=== PATIENT | female | born 1960 | race Caucasian/White ===

== ENCOUNTER 2017-02-21 13:09 | Observation (INO) | payer BC ==
[2017-02-21] MEDS ORDERED: ASPIRIN 81 MG PO STA (14:11)
[2017-02-21] MEDS ORDERED: NITROGLYCERIN OINT 1 INCH/GM PACKET TOPICAL STA (14:11)
--- NOTE | 2017-02-21 14:14 | ED ---
General Adult HPI - General Chief complaint: Chest Pain Stated complaint: chest & arm pain Time Seen by Provider: 02/21/17 13:50 Source: patient, family, RN notes reviewed Mode of arrival: wheelchair Limitations: no limitations - History of Present Illness Initial comments: Patient is a pleasant 36-year-old female presenting to the emergency department chest discomfort. Onset of symptoms was last night. Symptoms have been intermittent and usually occur with exertion. Discomfort is resolved at this point. Chest discomfort feels like a dull ache. There is radiation to the left arm which feels more tight. No chest discomfort at this time however arm is still a little bit tight. No associated dyspnea, nausea, or diaphoresis. No history of similar symptoms previously. No leg pain or leg swelling. - Related Data Home Medications Medication Instructions Recorded Confirmed traMADol HCL/ACETAMINOPHEN 1 tab PO TID PRN 02/21/17 02/21/17 [Ultracet 37.5-325] Allergies Allergy/AdvReac Type Severity Reaction Status Date / Time No Known Allergies Allergy Verified 02/21/17 13:24 Review of Systems ROS Statement: Those systems with pertinent positive or pertinent negative responses have been documented in the HPI. ROS Other: All systems not noted in ROS Statement are negative. Constitutional: Denies: fever Eyes: Denies: eye pain ENT: Denies: ear pain Respiratory: Denies: cough, dyspnea Cardiovascular: Reports: chest pain Endocrine: Denies: fatigue Gastrointestinal: Denies: abdominal pain Genitourinary: Denies: dysuria Musculoskeletal: Denies: back pain Skin: Denies: rash Neurological: Denies: weakness Past Medical History Additional Past Medical History / Comment(s): back pain History of Any Multi-Drug Resistant Organisms: None Reported Past Surgical History: Section, Uterine Ablation Additional Past Surgical History / Comment(s): fatty tumor removal Past Psychological History: No Psychological Hx Reported Smoking Status: Former smoker Past Alcohol Use History: Rare Past Drug Use History: None Reported General Exam Limitations: no limitations General appearance: alert, in no apparent distress Head exam: Present: atraumatic Eye exam: Present: normal appearance, PERRL ENT exam: Present: normal oropharynx Neck exam: Present: normal inspection Respiratory exam: Present: normal lung sounds bilaterally. Absent: chest wall tenderness Cardiovascular Exam: Present: regular rate, normal rhythm Expanded Peripheral pulses: 2+: Radial (R), Radial (L), Dorsalis Pedis (R), Dorsalis Pedis (L) GI/Abdominal exam: Present: soft. Absent: tenderness Extremities exam: Present: normal inspection. Absent: pedal edema, calf tenderness Neurological exam: Present: alert Psychiatric exam: Present: normal affect, normal mood Skin exam: Present: normal color Course Vital Signs 02/21/17 02/21/17 02/21/17 13:11 13:47 14:18 Temperature 97.9 F Pulse Rate 65 58 L 67 Respiratory 17 18 18 Rate Blood Pressure 131/75 114/55 121/75 O2 Sat by Pulse 100 99 97 Oximetry EKG Findings - EKG Comments: EKG Findings:: Sinus bradycardia 57. [place] 162. QRS 90. QT 426. QTc 414. Normal axis. Normal QRS. No acute ST change. Medical Decision Making - Medical Decision Making Patient reevaluated and resting comfortably in bed. Patient family updated on results and plan. Case was discussed in detail with Dr. Jimenez, who will admit for Dr. Silverio. - Lab Data Result diagrams: 02/21/17 13:40 02/21/17 13:40 Lab Results 02/21/17 02/21/17 02/21/17 Range/Units 13:40 13:40 13:40 WBC 5.6 (3.8-10.6) k/uL RBC 4.52 (3.80-5.40) m/uL Hgb 13.7 (11.4-16.0) gm/dL Hct 41.9 (34.0-46.0) % MCV 92.8 (80.0-100.0) fL MCH 30.2 (25.0-35.0) pg MCHC 32.6 (31.0-37.0) g/dL RDW 12.7 (11.5-15.5) % Plt Count 308 (150-450) k/uL Neutrophils % 71 % Lymphocytes % 22 % Monocytes % 4 % Eosinophils % 1 % Basophils % 1 % Neutrophils # 4.0 (1.3-7.7) k/uL Lymphocytes # 1.2 (1.0-4.8) k/uL Monocytes # 0.2 (0-1.0) k/uL Eosinophils # 0.1 (0-0.7) k/uL Basophils # 0.0 (0-0.2) k/uL PT (9.0-12.0) sec INR (<1.2) APTT (22.0-30.0) sec Sodium 144 (137-145) mmol/L Potassium 4.2 (3.5-5.1) mmol/L Chloride 107 (98-107) mmol/L Carbon Dioxide 29 (22-30) mmol/L Anion Gap 8 mmol/L BUN 14 (7-17) mg/dL Creatinine 0.70 (0.52-1.04) mg/dL Est GFR (MDRD) Af Amer >60 (>60 ml/min/1.73 sqM) Est GFR (MDRD) Non-Af >60 (>60 ml/min/1.73 sqM) Glucose 116 H (74-99) mg/dL Calcium 10.0 (8.4-10.2) mg/dL Magnesium 2.0 (1.6-2.3) mg/dL Total Bilirubin 0.4 (0.2-1.3) mg/dL AST 30 (14-36) U/L ALT 30 (9-52) U/L Alkaline Phosphatase 53 (38-126) U/L Total Creatine Kinase 113 (30-135) U/L CK-MB (CK-2) 1.6 (0.0-2.4) ng/mL CK-MB (CK-2) Rel Index 1.4 Troponin I <0.012 (0.000-0.034) ng/mL Total Protein 7.2 (6.3-8.2) g/dL Albumin 4.4 (3.5-5.0) g/dL 02/21/17 Range/Units 13:40 WBC (3.8-10.6) k/uL RBC (3.80-5.40) m/uL Hgb (11.4-16.0) gm/dL Hct (34.0-46.0) % MCV (80.0-100.0) fL MCH (25.0-35.0) pg MCHC (31.0-37.0) g/dL RDW (11.5-15.5) % Plt Count (150-450) k/uL Neutrophils % % Lymphocytes % % Monocytes % % Eosinophils % % Basophils % % Neutrophils # (1.3-7.7) k/uL Lymphocytes # (1.0-4.8) k/uL Monocytes # (0-1.0) k/uL Eosinophils # (0-0.7) k/uL Basophils # (0-0.2) k/uL PT 10.4 (9.0-12.0) sec INR 1.1 (<1.2) APTT 28.5 (22.0-30.0) sec Sodium (137-145) mmol/L Potassium (3.5-5.1) mmol/L Chloride (98-107) mmol/L Carbon Dioxide (22-30) mmol/L Anion Gap mmol/L BUN (7-17) mg/dL Creatinine (0.52-1.04) mg/dL Est GFR (MDRD) Af Amer (>60 ml/min/1.73 sqM) Est GFR (MDRD) Non-Af (>60 ml/min/1.73 sqM) Glucose (74-99) mg/dL Calcium (8.4-10.2) mg/dL Magnesium (1.6-2.3) mg/dL Total Bilirubin (0.2-1.3) mg/dL AST (14-36) U/L ALT (9-52) U/L Alkaline Phosphatase (38-126) U/L Total Creatine Kinase (30-135) U/L CK-MB (CK-2) (0.0-2.4) ng/mL CK-MB (CK-2) Rel Index Troponin I (0.000-0.034) ng/mL Total Protein (6.3-8.2) g/dL Albumin (3.5-5.0) g/dL - Radiology Data Radiology results: image reviewed (Chest x-ray shows no acute process) Disposition Clinical Impression: Chest pain Disposition: ADMITTED IP TO THIS [facility] Referrals: Grisel Silverio DO [Primary Care Provider] - 1-2 days Decision Time: 15:28
[2017-02-21 14:27] LABS: Basophils % (A) 1 %; Eosinophils # (A) 0.1 k/uL (0-0.7); Eosinophils % (A) 1 %; HCT 41.9 % (34.0-46.0); HGB 13.7 gm/dL (11.4-16.0); Lymphocytes # (A) 1.2 k/uL (1.0-4.8); Lymphocytes % (A) 22 %; MCH 30.2 pg (25.0-35.0); MCHC 32.6 g/dL (31.0-37.0); MCV 92.8 fL (80.0-100.0); Mean Platelet Volume 6.6; Monocytes # (A) 0.2 k/uL (0-1.0); Monocytes % (A) 4 %; Neutrophils % (A) 71 %; Platelet Count 308 k/uL (150-450); RBC 4.52 m/uL (3.80-5.40); RDW 12.7 % (11.5-15.5); WBC 5.6 k/uL (3.8-10.6)
[2017-02-21 14:34] LABS: ALT 30 U/L (9-52); AST 30 U/L (14-36); Albumin 4.4 g/dL (3.5-5.0); Alkaline Phosphatase 53 U/L (38-126); Anion Gap 8 mmol/L; Blood Urea Nitrogen 14 mg/dL (7-17); Carbon Dioxide 29 mmol/L (22-30); Chloride 107 mmol/L (98-107); Glucose 116 mg/dL (74-99); INR 1.1 (<1.2); Partial Thromboplastin Time 28.5 sec (22.0-30.0); Potassium 4.2 mmol/L (3.5-5.1); Prothrombin Time 10.4 sec (9.0-12.0); Sodium 144 mmol/L (137-145); Total Bilirubin 0.4 mg/dL (0.2-1.3); Total Protein 7.2 g/dL (6.3-8.2)
--- NOTE | 2017-02-21 14:45 | XR ---
EXAMINATION TYPE: XR chest 2V DATE OF EXAM: 02/21/2017 COMPARISON: None HISTORY: 56-year-old female with chest pain TECHNIQUE: PA and lateral views FINDINGS: The cardiomediastinal silhouette, aorta, and pulmonary vasculature are within normal limits. Lungs an d pleural spaces are clear. IMPRESSION: No acute cardiopulmonary process.
[2017-02-21 14:49] LABS: Creatine Kinase 113 U/L (30-135)
[2017-02-21 15:02] LABS: Creatine Kinase MB 1.6 ng/mL (0.0-2.4); Troponin I <0.012 ng/mL (0.000-0.034)
[2017-02-21] MEDS ORDERED: NITROGLYCERIN SL TABS 0.4 MG TAB SUBLINGUAL PRN (15:29)
[2017-02-21 17:33] VITALS: BMI 24.4
[2017-02-21] MEDS ORDERED: traMADol-ACETAMINOP 37.5-325MG 1 EACH TAB PO PRN (18:02)
[2017-02-21 19:58] LABS: Creatine Kinase 97 U/L (30-135)
[2017-02-21 20:08] LABS: Creatine Kinase MB 1.1 ng/mL (0.0-2.4); Troponin I <0.012 ng/mL (0.000-0.034)
[2017-02-21] MEDS ORDERED: ACETAMINOPHEN TAB 325 MG TAB PO PRN (20:21)
[2017-02-21] MEDS ORDERED: HEPARIN SODIUM,PORCINE 5,000 UNIT/ML 1 ML VIAL IV PRN (20:22)
[2017-02-21] MEDS ORDERED: HEPARIN SODIUM,PORCINE 5,000 UNIT/ML 1 ML VIAL IV ONE (20:22)
[2017-02-21] MEDS ORDERED: HEPARIN SOD,PORK IN 0.45% NACL 25,000 UNIT in 0.45% NACL 1 500ML.BAG IV SCH (20:30)
[2017-02-21 20:57] LABS: INR 1.1 (<1.2); Partial Thromboplastin Time 23.9 sec (22.0-30.0); Prothrombin Time 10.7 sec (9.0-12.0)
[2017-02-21] MEDS ORDERED: diphenhydrAMINE 25 MG CAP PO SCH (21:00)
[2017-02-21] MEDS: NITROGLYCERIN OINT 1 INCH/GM PACKET TOPICAL SCH (21:12)
--- NOTE | 2017-02-21 22:59 | HP ---
HISTORY AND PHYSICAL DATE OF SERVICE: 02/21/2017 CHIEF COMPLAINT: Chest pain. HISTORY OF PRESENT ILLNESS: This 56-year-old woman with a past medical history of back pain, uterine ablation, being followed by Dr. Camacho in the outpatient setting, was apparently having chest pains today. The patient felt pain in the left side of the chest and epigastrium and subsequently it also radiated to the left arm, almost like an ache; and because of increasing symptoms and concerns, the patient came to [facility] and was admitted for further evaluation and treatment. The patient never had a previous cardiac workup before. On admission the EKG showed no acute abnormality except heart rate of 57 showing mild sinus bradycardia. There is no history of any fever, rigors or chills. No history of headache, loss of consciousness, seizures. PAST MEDICAL HISTORY: 1. History of DJD. 2. Back pain. 3. History of section. 4. Uterine ablation. MEDICATIONS PRIOR TO ADMISSION: Medications prior to admission include Ultram 1 tablet t.i.d. p.r.n. ALLERGIES: NONE. FAMILY HISTORY: No history of heart disease or strokes in the family. SOCIAL HISTORY: Previous history of smoking. No current smoking or alcohol intake. Patient works at [employer]. REVIEW OF SYSTEMS: ENT: No diminished hearing. No diminished vision. CARDIOVASCULAR SYSTEM: As mentioned earlier. RESPIRATORY SYSTEM: No cough, hemoptysis. GI: No nausea, vomiting. : No dysuria or retention. NERVOUS SYSTEM: No numbness, weakness. ALLERGY/IMMUNOLOGY: No asthma, hayfever. MUSCULOSKELETAL: As mentioned earlier. HEMATOLOGY/ONCOLOGY: No history of anemia. ENDOCRINE: No history of diabetes, hypothyroidism. CONSTITUTIONAL: As mentioned earlier. DERMATOLOGY: Negative. RHEUMATOLOGY: Negative. PSYCHIATRY: As mentioned earlier. PHYSICAL EXAMINATION: Patient is alert and oriented x3. The pulse is 51, blood pressure 119/56, respiration 16, temperature 97.1, pulse ox 100% on room air. HEENT: Conjunctivae normal. Oral mucosa moist. NECK: No jugular venous distention. No carotid bruit. No lymph node enlargement. CARDIOVASCULAR SYSTEM: S1, S2 muffled. No S3. No S4. RESPIRATORY SYSTEM: Breath sounds diminished at the bases. No rhonchi. No crackles. ABDOMEN: Soft, non-tender. No mass palpable.. LEGS: No edema. No swelling. NERVOUS SYSTEM: Higher functions as mentioned earlier. Moves all 4 limbs. No focal motor or sensory deficit. LYMPHATICS: No lymph node palpable in neck, axillae or groin. SKIN: No ulcer, rash, bleeding. LABS: CBC within normal limits. Glucose 116. ASSESSMENT: 1. Chest pain, possible unstable angina. 2. Increased random blood sugar. 3. Remote history of nicotine dependence. 4. History of degenerative joint disease, back pain. RECOMMENDATIONS AND DISCUSSION: In this 56-year-old woman who presented with multiple complex medical issues, we will monitor the patient closely, continue the current medications, continue with symptomatic management. Will initiate unstable angina protocol, heparin and antiplatelet agents. Cardiology consultation. I would also recommend possible stress test in the morning the cardiac markers are negative. Repeat labs will also be ordered. Prognosis guarded because of multiple complex medical issues. Discussed with the patient, who understands. Further recommendations to follow. A copy of this dictation is being forwarded to Dr. Camacho, who is the primary physician. MMODL / IJN: [id number] / [id number]
[2017-02-22 01:31] LABS: Creatine Kinase 86 U/L (30-135)
[2017-02-22 01:45] LABS: Creatine Kinase MB 1.2 ng/mL (0.0-2.4); Troponin I <0.012 ng/mL (0.000-0.034)
[2017-02-22 03:27] LABS: Basophils % (A) 0 %; Eosinophils # (A) 0.1 k/uL (0-0.7); Eosinophils % (A) 2 %; HCT 42.5 % (34.0-46.0); HGB 13.6 gm/dL (11.4-16.0); Lymphocytes # (A) 1.6 k/uL (1.0-4.8); Lymphocytes % (A) 24 %; MCV 93.8 fL (80.0-100.0); Mean Platelet Volume 7.6; Monocytes # (A) 0.4 k/uL (0-1.0); Monocytes % (A) 5 %; Neutrophils # (A) 4.5 k/uL (1.3-7.7); Neutrophils % (A) 66 %; Platelet Count 273 k/uL (150-450); RBC 4.53 m/uL (3.80-5.40); RDW 13.9 % (11.5-15.5); WBC 6.8 k/uL (3.8-10.6)
[2017-02-22] MEDS: NITROGLYCERIN OINT 1 INCH/GM PACKET TOPICAL SCH ×3 (03:33→12:27)
[2017-02-22 04:22] LABS: Anion Gap 10 mmol/L; Blood Urea Nitrogen 14 mg/dL (7-17); Calcium 10.4 mg/dL (8.4-10.2); Carbon Dioxide 25 mmol/L (22-30); Chloride 108 mmol/L (98-107); Cholesterol 237 mg/dL (<200); Glucose 104 mg/dL (74-99); HDL Cholesterol 76 mg/dL (40-60); LDL Cholesterol,Calculated 147 mg/dL (0-99); Sodium 143 mmol/L (137-145); Triglycerides 70 mg/dL (<150)
[2017-02-22 08:42] VITALS: RESP 16
--- NOTE | 2017-02-22 08:57 | P.CRDCN ---
History of Present Illness Consult date: 02/22/17 Chief complaint: Chest discomfort History of present illness: This is a pleasant 56-year-old female patient with no significant past medical history presented to the emergency room complaining of chest discomfort. She was in her usual state of health and she went home after work and suddenly she started experiencing discomfort in the left lower chest as a sharp kind of discomfort with some radiation to the left arm. No associated symptoms of shortness of breath. No dizziness or lightheadedness. No nausea or vomiting. And no syncope. 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 As a matter of fact she does not take any medications at home. The EKG showed sinus rhythm without any significant ST or T-wave abnormalities concerning for ischemia. The cardiac enzymes were checked and came in to be unremarkable. The patient does have her father who has congestive heart failure but not coronary artery disease. Past Medical History Additional Past Medical History / Comment(s): back pain History of Any Multi-Drug Resistant Organisms: None Reported Past Surgical History: Section, Uterine Ablation Additional Past Surgical History / Comment(s): fatty tumor removal Past Psychological History: No Psychological Hx Reported Smoking Status: Former smoker Past Alcohol Use History: Rare Past Drug Use History: None Reported Medications and Allergies Home Medications Medication Instructions Recorded Confirmed Type traMADol HCL/ACETAMINOPHEN 1 tab PO TID PRN 02/21/17 02/21/17 History [Ultracet 37.5-325] Allergies Allergy/AdvReac Type Severity Reaction Status Date / Time No Known Allergies Allergy Verified 02/21/17 13:24 Physical Exam Vitals: Vital Signs Temp Pulse Pulse Resp BP BP Pulse Ox 02/22/17 08:00 98.0 F 63 16 103/56 02/22/17 04:00 97.3 F L 61 18 107/55 97 02/22/17 00:00 97.7 F 66 18 115/53 96 02/21/17 20:30 97.0 F L 62 18 119/64 96 02/21/17 19:41 97 02/21/17 17:20 97.1 F L 51 L 16 119/57 100 02/21/17 16:00 98.1 F 59 L 19 120/57 98 02/21/17 14:18 67 18 121/75 97 02/21/17 13:47 58 L 18 114/55 99 02/21/17 13:11 97.9 F 65 17 131/75 100 Intake and Output 02/21/17 02/22/17 02/22/17 22:59 06:59 14:59 Intake Total 240 0 Balance 240 0 Intake: Oral 240 0 Other: Voiding Method Toilet Toilet # Voids 0 1 # Bowel Movements 0 Weight 70.76 kg 69.8 kg - Constitutional General appearance: no acute distress - Respiratory Respiratory: bilateral: CTA - Cardiovascular Rhythm: regular Heart sounds: normal: S1, S2 Results 02/22/17 03:15 02/22/17 03:15 Cardiac Enzymes 02/21/17 02/21/17 02/21/17 Range/Units 13:40 13:40 19:26 AST 30 (14-36) U/L CK-MB (CK-2) 1.6 1.1 (0.0-2.4) ng/mL Troponin I <0.012 <0.012 (0.000-0.034) ng/mL 02/22/17 Range/Units 00:58 AST (14-36) U/L CK-MB (CK-2) 1.2 (0.0-2.4) ng/mL Troponin I <0.012 (0.000-0.034) ng/mL Coagulation 02/21/17 02/21/17 02/22/17 Range/Units 13:40 20:33 03:15 PT 10.4 10.7 (9.0-12.0) sec APTT 28.5 23.9 65.0 H (22.0-30.0) sec Lipids 02/22/17 Range/Units 03:15 Triglycerides 70 (<150) mg/dL Cholesterol 237 H (<200) mg/dL HDL Cholesterol 76 H (40-60) mg/dL CBC 02/21/17 02/22/17 Range/Units 13:40 03:15 WBC 5.6 6.8 (3.8-10.6) k/uL RBC 4.52 4.53 (3.80-5.40) m/uL Hgb 13.7 13.6 (11.4-16.0) gm/dL Hct 41.9 42.5 (34.0-46.0) % Plt Count 308 273 (150-450) k/uL Comprehensive Metabolic Panel 02/21/17 02/22/17 Range/Units 13:40 03:15 Sodium 144 143 (137-145) mmol/L Potassium 4.2 4.0 (3.5-5.1) mmol/L Chloride 107 108 H (98-107) mmol/L Carbon Dioxide 29 25 (22-30) mmol/L BUN 14 14 (7-17) mg/dL Creatinine 0.70 0.71 (0.52-1.04) mg/dL Glucose 116 H 104 H (74-99) mg/dL Calcium 10.0 10.4 H (8.4-10.2) mg/dL AST 30 (14-36) U/L ALT 30 (9-52) U/L Alkaline Phosphatase 53 (38-126) U/L Total Protein 7.2 (6.3-8.2) g/dL Albumin 4.4 (3.5-5.0) g/dL Current Medications Generic Name Dose Route Start Last Admin Trade Name Dannyq PRN Reason Stop Dose Admin Acetaminophen 650 mg 02/21/17 20:21 02/21/17 20:46 Tylenol Tab PO 650 mg Q6HR PRN Administration Mild Pain Aspirin 325 mg 02/22/17 09:00 Aspirin PO DAILY [facility] Diphenhydramine HCl 25 mg 02/21/17 21:00 02/21/17 21:42 Benadryl PO 25 mg HS NAFISA Administration Heparin Sodium (Porcine) 0 unit 02/21/17 20:22 Heparin IV PER PROTOCOL PRN Low PTT Protocol Heparin Sodium/Sodium Chloride 500 mls @ 16.98 mls/hr 02/21/17 20:30 21:29 25,000 unit/ Sodium Chloride IV 12 units/kg/hr .Q24H NAFISA 16.98 mls/hr Protocol Administration 12 UNITS/KG/HR Nitroglycerin 1 inch 02/21/17 18:00 02/22/17 05:39 Nitro-Bid Oint TOPICAL Not Given Q6HR [facility] Nitroglycerin 0.4 mg 02/21/17 15:29 Nitrostat SUBLINGUAL Q5M PRN Chest Pain Tramadol/Acetaminophen 1 each 02/21/17 18:02 Ultracet PO Q6HR PRN pain Intake and Output 02/21/17 02/22/17 02/22/17 22:59 06:59 14:59 Intake Total 240 0 Balance 240 0 Intake: Oral 240 0 Other: Voiding Method Toilet Toilet # Voids 0 1 # Bowel Movements 0 Weight 70.76 kg 69.8 kg 02/22/17 03:15 02/22/17 03:15 Assessment and Plan Assessment: Assessment #1 atypical chest discomfort #2 prior history of smoking Plan #1 the patient was ruled out for acute coronary syndrome #2 I recommended obtaining a stress test to rule out any severe underlying CAD. Thank you for allowing us participate in her care
[2017-02-22] MEDS ORDERED: ASPIRIN 325 MG TAB PO SCH (09:00)
[2017-02-22 12:23] VITALS: BP 110/62; PULSE 70; TEMP 98.1
--- NOTE | 2017-02-22 12:45 | ECHOS ---
STRESS ECHOCARDIOGRAM INDICATIONS: Chest pain. MEDICATIONS: Tramadol. BASELINE HEART RATE: 86 BASELINE BLOOD PRESSURE: 143/90 MAXIMUM HEART RATE: 156 MAXIMUM BLOOD PRESSURE: 133/59 85% MPHR: 140 100% MPHR: 165 METS: 10.3 MAXIMUM STAGE REACHED: 3 TOTAL EXERCISE TIME: 9:00 CLINICAL INFORMATION: Baseline EKG revealed normal sinus rhythm without significant ST-T changes. Patient walked on standard Sal protocol for 9 minutes, achieved a maximal heart rate of 156 beats per minute which is well above 85% of predicted maximal. Resting heart rate is 86 beats per minute. Resting blood pressure was 143/90. She did not have a significant increase in blood pressure with exercise. The recordings of blood pressure were inadequate. By EKG criteria, this is a negative stress test with fair exercise capacity. However, the blood pressure response seemed somewhat inadequate and flat. Clinical correlation is suggested. Baseline echo images revealed normal wall motion and wall thickening of all segments. At peak exercise, there was good augmentation of the wall motion and wall thickening of all segments suggesting that there is no evidence of stress-induced ischemia on this study. IMPRESSION: 1. Fair exercise capacity with a negative stress test by EKG criteria with somewhat of a flat blood pressure response to exercise. This may be an aberrancy, may not necessarily represent any significant abnormality. 2. Normal stress echocardiogram. 3. Clinical correlation is suggested. MMODL / IJN: [id number] /
--- NOTE | 2017-02-22 14:55 | P.DS ---
Providers Date of admission: 02/21/17 15:29 Attending physician: Adeola Andrea MD Consults: 02/21/17 15:29 Consult Physician Urgent Consulting Provider: Juaquin Reyna Consult Reason/Comments: cp Do you want consulting provider notified?: Yes Primary care physician: Grisel Camacho [facility] Course: This 56-year-old woman with a past medical history of back pain was admitted chest pain. Myocardial infarction ruled out. Cardiology performed a stress test. Which was normal. Patient improved significantly. Patient be discharged in a stable condition with guarded prognosis. On exam vitals are stable. Cardio S1-S2 normal. Respiratory system clear to oscillation. Abdomen soft nontender. Nervous system no focal deficit. Final diagnosis 1. Chest pain possibly musculoskeletal with a negative stress test. 2. Increased Blood sugar. 3. Remote history and nicotine dependence. 4. History of DJD and back pain. Plan - Discharge Summary Discharge Rx Participant: No New Discharge Prescriptions: Continue traMADol HCL/ACETAMINOPHEN [Ultracet 37.5-325] 1 tab PO TID PRN PRN Reason: Pain Discharge Medication List traMADol HCL/ACETAMINOPHEN [Ultracet 37.5-325] 1 tab PO TID PRN 02/21/17 [ History] Follow up Appointment(s)/Referral(s): Grisel Camacho DO [Primary Care Provider] - 1-2 days Activity/Diet/Wound Care/Special Instructions: act limited till f/u f/u with cardio as advised diet cardiac Discharge Disposition: HOME SELF-CARE
== END 2017-02-22 15:14 | disposition home or self-care (01) ==
LOC: SUPCPDRO 13:09 → EC 13:09 → 6SEL 15:29
PROVIDERS: ADMIT Internal Medicine; ATTEND Internal Medicine
DX: R07.89 Other chest pain (principal); M79.602 Pain in left arm; M54.9 Dorsalgia, unspecified; R00.1 Bradycardia, unspecified; M19.90 Unspecified osteoarthritis, unspecified site; Z87.891 Personal history of nicotine dependence; Z82.49 Family history of ischemic heart disease and other diseases of the circulatory system
CPT/HCPCS: 96376; 96365; 96366 ×2; 99285; 36415; 94760; 93005; 93017; 93350; 80061; 80053; 80048; 82550 ×2; 82553 ×2; 83735; 84484 ×2; 85025 ×2; 85610; 85730 ×2; 71020; G0378 ×2; J1644 ×2

== ENCOUNTER → 2017-12-09 | Outpatient (CLI) | payer BC ==
--- NOTE | 2017-12-10 10:26 | MM ---
Reason for exam: screening (asymptomatic). Last mammogram was performed 2 years and 7 months ago. History: Patient is postmenopausal. Physical Findings: A clinical breast exam by your physician is recommended on an annual basis and results should be correlated with mammographic findings. MG 3D Screening Mammo W/Cad Bilateral CC and MLO view(s) were taken. Prior study comparison: April 25, 2015, bilateral MG 3d screening mammo w/cad. December 08, 2012, bilateral digital screening mammo w/CAD. There are scattered fibroglandular densities. No suspicious abnormality. ASSESSMENT: Negative, BI-RAD 1 RECOMMENDATION: Routine screening mammogram of both breasts in 1 year.
== END | disposition home or self-care (01) ==
LOC: RADMAMWWP 09:53
PROVIDERS: ATTEND Family Medicine
DX: Z12.31 Encounter for screening mammogram for malignant neoplasm of breast (principal)
CPT/HCPCS: 77063; 77067

== ENCOUNTER → 2018-10-14 | Outpatient (CLI) | payer BC ==
--- NOTE | 2018-10-14 15:36 | XR ---
Lumbar spine HISTORY: Chronic low back pain 3 views of the lumbar spine Bone mineralization is reduced. Lumbar vertebral bodies show preserved height and alignment. Loss of disc height is greatest at L4-5, there is associated spondylosis. Intervertebral loss of disc height is also present L3-4, L2-3. Sclerosis present in the posterior elements of the lower lumbar spine. IMPRESSION: Degenerative disc disease, osteopenia, facet arthropathy.
== END | disposition home or self-care (01) ==
LOC: RADXRYALE 11:13
PROVIDERS: ATTEND Nurse Practitioner Family
DX: M51.36 Other intervertebral disc degeneration, lumbar region (principal); M46.96 Unspecified inflammatory spondylopathy, lumbar region; M85.88 Other specified disorders of bone density and structure, other site
CPT/HCPCS: 72100

== ENCOUNTER 2019-11-18 07:18 | Day surgery (SDC) | payer BC ==
[~2019-11-18 07:18] MED LIST: LACTATED RINGERS 1,000 ML IV SCH; MIDAZOLAM 2 MG/2 ML VIAL IV PRN; ONDANSETRON 4 MG/2 ML VIAL IVP PRN; fentaNYL (PF) 50 MCG/ML 2 ML AMP IV PRN; fentaNYL (PF) 50 MCG/ML 2 ML AMP IVP PRN
[2019-11-18 08:01] VITALS: RESP 16; TEMP 98.1
[2019-11-18] MEDS ORDERED: PROPOFOL 10 MG/ML 20 ML VIAL IV ONE (08:10)
[2019-11-18] MEDS ORDERED: LIDOCAINE 1% INJ 10MG/ML (20 ML MDV) ONE (08:10)
--- NOTE | 2019-11-18 08:30 | P.PCN ---
Date of Procedure: 11/18/19 Procedure(s) Performed: BRIEF HISTORY: Patient is a 59-year-old pleasant female scheduled for an elective colonoscopy as a part of screening for colorectal neoplasia. PROCEDURE PERFORMED: Colonoscopy with snare . CA polypectomyEOPERATIVE DIAGNOSIS: Screening for colon cancer. IV sedation per Anesthesia. PROCEDURE: After informed consent was obtained, the patient, was brought into the endoscopy unit. IV sedation was administered by Anesthesia under continuous monitoring. Digital rectal examination was normal. Initially the Olympus CF-160 flexible video colonoscope was then inserted in the rectum, gradually advanced into the cecum without any difficulty. Careful examination was performed as the scope was gradually being withdrawn. Ileocecal valve and the appendiceal orifice were visualized and appeared normal. Prep was excellent. Mucosa of the cecum, ascending colon, transverse colon, descending colon, sigmoid colon,had diffuse Temple recommendations consistent with melanosis coli. In the proximal rectum there was a 5 mm polyp that was removed by snare polypectomy. Rest of the rect um appeared normal. Retoflexion was performed in the rectum and no lesions were seen. The patient tolerated the procedure well. IMPRESSION: 5 mm proximal rectal polyp status post polypectomy Severe melanosis coli. RECOMMENDATIONS: Findings of this examination were discussed with the patient as well as a family. she was advised to follow with the biopsy sites. If the biopsy shows an adenoma she can have a repeat colonoscopy in 5 years
[2019-11-18 08:48] VITALS: BP 111/61; PULSE 56
== END 2019-11-18 09:06 | disposition home or self-care (01) ==
LOC: ORWHC2ENDO 07:18 → MERGE 08:50 → EDBD 08:50 → ORWHC2ENDO 09:06
PROVIDERS: ATTEND Internal Medicine Gastroenterology
DX: Z12.11 Encounter for screening for malignant neoplasm of colon (principal); K62.1 Rectal polyp; K63.89 Other specified diseases of intestine
CPT/HCPCS: 45385; 88305; J2001; J2704

== ENCOUNTER → 2020-03-02 | Outpatient (CLI) | payer BC ==
--- NOTE | 2020-03-03 14:28 | MM ---
Reason for exam: screening (asymptomatic). Last mammogram was performed 2 years and 3 months ago. History: Patient is postmenopausal. Physical Findings: A clinical breast exam by your physician is recommended on an annual basis and results should be correlated with mammographic findings. MG 3D Screening Mammo W/Cad Bilateral CC and MLO view(s) were taken. Prior study comparison: December 09, 2017, bilateral MG 3d screening mammo w/cad. April 25, 2015, bilateral MG 3d screening mammo w/cad. There are scattered fibroglandular densities. No significant changes when compared with prior studies. ASSESSMENT: Negative, BI-RAD 1 RECOMMENDATION: Routine screening mammogram of both breasts in 1 year.
== END | disposition home or self-care (01) ==
LOC: RADMAMWWP 10:01
PROVIDERS: ATTEND Obstetrics & Gynecology
DX: Z12.31 Encounter for screening mammogram for malignant neoplasm of breast (principal)
CPT/HCPCS: 77063; 77067

== ENCOUNTER → 2021-10-10 | Outpatient (CLI) | payer BC ==
--- NOTE | 2021-10-10 13:25 | BD ---
EXAMINATION TYPE: Axial Bone Density DATE OF EXAM: 10/10/2021 COMPARISON: NONE CLINICAL HISTORY: 61 years year old Female. ICD-10 CODE: Y75489 ENCOUNTER FOR SCRENING OSTEOPOROSIS Height: 5' 6 1/2 Weight: 160 FRAX RISK QUESTIONS: Secondary Osteoporosis: RISK FACTORS HISTORY OF: Postmenopausal woman: y MEDICATIONS: Additional Medications: backpain, Additional History: EXAM MEASUREMENTS: Bone mineral densitometry was performed using the freee System. Bone mineral density as measured about the Lumbar spine is: ----- L1-L4(G/cm2): 1.088 T Score Values are as follows: ----- L1: -1.0 ----- L2: -1.2 ----- L3: -0.5 ----- L4: -0.5 ----- L1-L4: -0.8 Bone mineral density about the R hip (g/cm2): 1.007 Bone mineral density about the L hip (g/cm2): 0.988 T Score values are as follows: -----R Neck: -0.2 -----L Neck: -0.4 -----R Total: 0.7 -----L Total: 0.3 FRAX%s: The graph provided illustrates a 6.6%chance for a major osteoporotic fx and a 0.2% chance for the hips probability for fx in 10 years time. IMPRESSION: Normal (Values between +1 and -1 indicate normal bone mass). Consider repeating this study in 5 year s or sooner if there is some new clinical indication. NOTE: T-SCORE=SD OF THE YOUNG ADULT MEAN.
--- NOTE | 2021-10-11 19:22 | MM ---
Reason for Exam: Screening (asymptomatic). Last mammogram was performed 1 year(s) and 7 month(s) ago. Patient History: Menarche at age 11. First Full-Term at age 23. Postmenopausal. Patient has history of breast feeding. Risk Values: Cherelle 5 year model risk: 1.4%. NCI Lifetime model risk: 7.2%. Prior Study Comparison: 12/08/2012 Bilateral Screening Mammogram, [facility]. 04/25/2015 Bilateral Screening Mammogram, [facility]. 12/09/2017 Bilateral Screening Mammogram, [facility]. 03/02/2020 Bilateral Screening Mammogram, [facility]. Tissue Density: There are scattered fibroglandular densities. Findings: Analyzed By CAD. There is no suspicious group of microcalcifications or new suspicious mass in either breast. Overall Assessment: Negative, BI-RAD 1 Management: Screening Mammogram of both breasts in 1 year. 1. Patient should continue monthly self breast exams. 2. A clinical breast exam by your physician is recommended on an annual basis. 3. This exam should not preclude additional follow-up of suspicious palpable abnormalities. Electronically signed and approved by: Clarence Garcia M.D. Radiologist
== END | disposition home or self-care (01) ==
LOC: RADMAMWWP 12:46
PROVIDERS: ATTEND Family Medicine
DX: Z12.31 Encounter for screening mammogram for malignant neoplasm of breast (principal); Z13.820 Encounter for screening for osteoporosis; Z78.0 Asymptomatic menopausal state
CPT/HCPCS: 77063; 77067; 77080